=== PATIENT | male | born 1995 | race Caucasian/White ===

== ENCOUNTER 2016-12-02 02:07 | Emergency (ER) | payer SELFPAY ==
[2016-12-02] MEDS ORDERED: methylPREDNISolone SODIUM SUC 40 MG/ML VIAL ONE (02:14)
[2016-12-02] MEDS ORDERED: diphenhydrAMINE HCL 25 MG CAP ONE (02:15)
[2016-12-02] MEDS ORDERED: predniSONE 20 MG TAB ONE (02:16)
[2016-12-02] MEDS ORDERED: methylPREDNISolone SODIUM SUC 125 MG/2 ML VIAL IM ONE (02:25)
[2016-12-02] MEDS ORDERED: predniSONE 20 MG TAB PO ONE (02:26)
[2016-12-02] MEDS ORDERED: diphenhydrAMINE HCL 25 MG CAP PO ONE (02:26)
[2016-12-02] MEDS ORDERED: IPRATROPIUM/ALBUTEROL 3 ML VIAL NEB ONE ×2 (02:32→02:48)
--- NOTE | 2016-12-02 04:39 | ED.PDOC ---
History of Present Illness - General Chief Complaint: Allergic Reaction Stated Complaint: bee sting allergy Time Seen by Provider: 12/02/16 04:34 Source: patient Exam Limitations: no limitations - History of Present Illness Initial Comments: the patient is a 20-year-old male that got stung by V 1-1/2 hours prior to arrival. He is starting to have a mild cough. He started to have hives develop on his arms. His face is starting to break out in his lips are starting to swell. No ringing in the ears.no chest pain and no shortness of breath. No syncope or near syncope. Timing/Duration: 1-3 hours Severity: moderate Improving Factors: nothing Worsening Factors: nothing Associated Symptoms: denies symptoms Allergies/Adverse Reactions: Allergies Penicillins Allergy (Verified 07/30/12 09:26) Home Medications: Ambulatory Orders Albuterol Inhaler [Ventolin Hfa Inhaler] 1 puff INH Q2H PRN #1 inh 12/02/16 Epinephrine [Epipen 2-Jose] 0.3 mg IJ ONCE PRN #0.6 ml 12/02/16 predniSONE [Prednisone] 20 mg PO DAILY #3 tab 12/02/16 Review of Systems - Review of Systems Constitutional: States: no symptoms reported EENTM: States: nose congestion Respiratory: States: cough, wheezing - mild Cardiology: States: no symptoms reported Gastrointestinal/Abdominal: States: no symptoms reported Genitourinary: States: no symptoms reported Musculoskeletal: States: no symptoms reported Skin: States: see HPI Neurological: States: anxiety Endocrine: States: no symptoms reported All other Systems: No Change from Baseline Past Medical History (General) - Patient Medical History Hx Asthma: Yes Hx Cardiac Disorders: No Hx Congestive Heart Failure: No Hx Diabetes: No Hx Cancer: No Hx Hepatitis C: No Surgical History: appendectomy - Vaccination History Hx Tetanus, Diphtheria Vaccination: Yes Hx Influenza Vaccination: Yes Hx Pneumococcal Vaccination: No - Social History Hx Tobacco Use: Yes Hx Alcohol Use: Yes Family Medical History - Family History Father Family History: No Known Living Status: Still Living Physical Exam - Physical Exam General Appearance: Alert, Anxious, No apparent distress Eye Exam: bilateral normal Ears, Nose, Throat: hearing grossly normal, normal ENT inspection - with the exception of mild swelling around the lips., normal pharynx Neck: non-tender, full range of motion, supple Respiratory: chest non-tender, no respiratory distress, no accessory muscle use , wheezing - mild bilaterally Cardiovascular/Chest: normal peripheral pulses, regular rate, rhythm, no edema Peripheral Pulses: radial,right: 2+, radial,left: 2+, dorsalis pedis,right: 2+, dorsalis pedis,left: 2+, posterior tibialis,right: 2+, posterior tibialis,left: 2+ Gastrointestinal/Abdominal: non tender, soft Rectal Exam: deferred Back Exam: normal inspection, no CVA tenderness, no vertebral tenderness Extremity: normal range of motion, non-tender, no pedal edema, normal capillary refill Neurologic: alert, normal mood/affect, oriented x 3 Skin Exam: rash - height to the upper extremities and his face is rhubaric Comments: Vital Signs - 24 hr 12/02/16 12/02/16 12/02/16 02:19 02:30 02:35 Temperature 96.4 F L Pulse Rate 109 H Pulse Rate [ 113 H left] Respiratory 16 16 16 Rate Blood Pressure 134/79 [left] O2 Sat by Pulse 98 97 Oximetry 12/02/16 12/02/16 03:07 04:05 Temperature Pulse Rate Pulse Rate [ 96 H 93 H left] Respiratory 22 20 Rate Blood Pressure 130/74 [left] O2 Sat by Pulse 95 96 Oximetry Progress - Progress Progress: 12/02/16 04:40 the patient is a 20-year-old male presenting due to a systemic reaction to bee sting. The reaction includes hives and the start of some airway involvement. He is not in distress but did respond well to the steroids and Benadryl. He needs to keep Benadryl around in case he has further reactions. Additionally he will be written for an EpiPen for very severe reactions. He is going to be placed on prednisone for 3 days. He'll also be written for an albuterol inhaler to keep on hand. He needs to follow-up with his primary care doctor early next week. ER warnings were given. Departure - Departure Clinical Impression: Urticaria Insect stings Qualifiers: Encounter type: initial encounter Injury intent: accidental or unintentional Qualified Code(s): T63.481A - Toxic effect of venom of other arthropod, accidental (unintentional), initial encounter Disposition: Discharge to Home or Self Care Condition: Fair Departure Forms: ED Discharge - Pt. Copy, Patient Portal Self Enrollment Instructions: DI for Hives Diet: regular diet Activity: increase activity as tolerated Prescriptions: Albuterol Inhaler [Ventolin Hfa Inhaler] 1 puff INH Q2H PRN #1 inh PRN Reason: Shortness Of Breath/Wheezing Epinephrine [Epipen 2-Jose] 0.3 mg IJ ONCE PRN #0.6 ml PRN Reason: Allergic Rhinitis predniSONE [Prednisone] 20 mg PO DAILY #3 tab Home Medications: Ambulatory Orders Albuterol Inhaler [Ventolin Hfa Inhaler] 1 puff INH Q2H PRN #1 inh 12/02/16 Epinephrine [Epipen 2-Jose] 0.3 mg IJ ONCE PRN #0.6 ml 12/02/16 predniSONE [Prednisone] 20 mg PO DAILY #3 tab 12/02/16 Additional Instructions: the patient is a 20-year-old male presenting due to a systemic reaction to bee sting. The reaction includes hives and the start of some airway involvement. He is not in distress but did respond well to the steroids and Benadryl. He needs to keep Benadryl around in case he has further reactions. Additionally he will be written for an EpiPen for very severe reactions. He is going to be placed on prednisone for 3 days. He'll also be written for an albuterol inhaler to keep on hand. He needs to follow-up with his primary care doctor early next week. ER warnings were given.
[2016-12-02 04:43] VITALS: BP 110/70; TEMP 98.2; O2SAT 93
== END 2016-12-02 05:02 | disposition home or self-care (01) ==
LOC: ER 02:07
DX: T63.441A Toxic effect of venom of bees, accidental (unintentional), initial encounter (principal); J45.909 Unspecified asthma, uncomplicated; Z87.891 Personal history of nicotine dependence; Z79.899 Other long term (current) drug therapy; Y92.9 Unspecified place or not applicable; Z88.0 Allergy status to penicillin
CPT/HCPCS: 94640; J1030; J7512; J7620; Q0163